=== PATIENT | male | born 1940 | race Hispanic/Latino ===

== ENCOUNTER 2022-04-03 20:57 | Observation (INO) | payer OTHER ==
--- NOTE | 2022-04-03 21:01 | EDPHYS ---
Physician Documentation [facility] Name: Billy Cristobal Age: 81 yrs Sex: Male : 1940 Arrival Date: 04/03/2022 Time: 20:58 Bed 18 Private MD: ED Physician Evaristo Cortes HPI: 04/04 00:09 This 81 yrs old Male presents to ER via EMS with complaints of pt was to be at [facility] for hospice but they declined him as he has a pluerex catheter draining to a collection system. 00:09 pt with pleural effusion, to be admitted to await NH placement at a facility that is sn comfortable taking pt . Historical: - Allergies: 04/03 21:09 No Known Allergies; ha1 - Home Meds: 21:09 amlodipine oral [Active]; Hydrochlorothiazide Oral [Active]; rosuvastatin Oral [Active];ha1 - PMHx: 21:09 Hypercholesterolemia; Hypertensive disorder; ha1 - Immunization history:: Adult Immunizations up to date. - Social history:: Smoking status: unknown. ROS: 04/04 00:09 Respiratory: Positive for cough, pleural effusion, upper abd pain. snw Exam: 00:09 Constitutional: This is a well developed, well nourished patient who is awake, alert, snw and in no acute distress. Head/Face: Normocephalic, atraumatic. Eyes: Pupils equal round and reactive to light, extra-ocular motions intact. Lids and lashes normal. Conjunctiva and sclera are non-icteric and not injected. Cornea within normal limits. Periorbital areas with no swelling, redness, or edema. ENT: Nares patent. No nasal discharge, no septal abnormalities noted. Tympanic membranes are normal and external auditory canals are clear. Oropharynx with no redness, swelling, or masses, exudates, or evidence of obstruction, uvula midline. Mucous membranes moist. 00:09 Back: No spinal tenderness. No costovertebral tenderness. Full range of motion. Skin: Warm, dry with normal turgor. Normal color with no rashes, no lesions, and no evidence of cellulitis. MS/ Extremity: Pulses equal, no cyanosis. Neurovascular intact. Full, normal range of motion. 00:09 Cardiovascular: Heart sounds: murmur, systolic, grade 4 over 6, Edema: is not appreciated. 00:09 Respiratory: the patient does not display signs of respiratory distress, Respirations: normal, Breath sounds: decreased breath sounds, right sided pleurex cath. 00:09 Abdomen/GI: Inspection: abdomen appears normal, Palpation: mild abdominal tenderness, in the epigastric area, right upper quadrant and left upper quadrant. Vital Signs: 04/03 21:04 BP 121 / 56; Pulse 107; Resp 20 S; Pulse Ox 96% on 3 lpm NC; Weight 74.84 kg; Height 5 ha1 ft. 9 in. (175.26 cm); Pain 7/10; 22:00 BP 121 / 51; Pulse 106; Resp 20 S; Pulse Ox 95% on 3 lpm NC; ha1 21:04 Body Mass Index 24.37 (74.84 kg, 175.26 cm) ha1 MDM: 20:58 Patient medically screened. snw 21:00 Data reviewed: vital signs, nurses notes. Counseling: I had a detailed discussion with snw the patient and/or guardian regarding: the historical points, exam findings, and any diagnostic results supporting the discharge/admit diagnosis, the need for further work-up and treatment in the hospital, pt needs admission for care until hospice situation resolved as pt has a pleural drainage system and was not accepted to facility with device. Administered Medications: 22:11 Drug: HYDROcodone-acetaminophen 5 mg-325 mg 1 tabs Route: PO; ha1 22:20 Follow up: Response: No adverse reaction; Pain is decreased; RASS: Alert and Calm (0) ha1 22:11 Drug: XANax (alprazolam) Tablet 0.25 mg Route: PO; ha1 22:20 Follow up: Response: No adverse reaction [facility] Disposition: 04/04 00:13 Chart complete. snw 03:13 Co-signature as Attending Physician, Evaristo Cortes MD I reviewed the patient's care rt provided by the Advanced Practice Provider and agree with the diagnosis and treatment plan. Disposition Summary: 04/03/22 21:00 Hospitalization Ordered Hospitalization Status: Observation snw Provider: [place] Location: Telemetry/MedSurg (observation) snw Condition: Guarded snw Problem: an ongoing problem snw Symptoms: are unchanged snw Bed/Room Type: Standard snw Room Assignment: 406(04/03/22 21:34) cg Diagnosis - Pleural effusion, not elsewhere classified snw Forms: - Medication Reconciliation Form snw - SBAR form snw Signatures: Hetal Myers FNP-C FNP-Aida Cannon RN RN cg Jocelyne Chahal RN RN ha1 Evaristo Cortes MD MD rt Corrections: (The following items were deleted from the chart) 04/03 20:34 21:00 snw cg
[2022-04-03] MEDS ORDERED: MORPHINE 2 MG/ML SYR IV PRN (21:57)
[2022-04-03] MEDS ORDERED: ONDANSETRON 4 MG/2 ML VIAL IV PRN (21:57)
[2022-04-03] MEDS ORDERED: ALPRAZOLAM 0.25 MG TABLET ONE (22:07)
[2022-04-03] MEDS ORDERED: HYDROCODONE/APAP 5/325 MG TAB ONE (22:08)
--- NOTE | 2022-04-03 22:17 | P.HP ---
Certification for Inpatient Patient admitted to: Observation With expected LOS: <2 Midnights Patient will require the following post-hospital care: None Practitioner: I am a practitioner with admitting privileges, knowledge of patient current condition, hospital course, and medical plan of care. 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 Patient was previously accepted on hospice to [facility] but upon arrival nursing staff refused to accept patient as he had a "chest tube". A discussion was had with staff at facility and attending physician here but ultimately nursing staff at [facility] refused to accept the patient. He was sent back to our facility will need to be admitted to further work on placement. - Past Medical/Surgical History Diabetic: No -: hypertension -: diabetes type 2 -: Metastatic cancer -: Malignant pleural effusion -: Right sided Pleurx catheter Psychosocial/ Personal History: Patient currently on hospice - Family History Father History Unknown: Yes - Social History Smoking Status: Former smoker Alcohol use: No CD- Drugs: No Caffeine use: No Place of Residence: [facility] <Barak Mitchell - Last Filed: 04/03/22 22:17> Date of Service: 04/04/22 <[place] - Last Filed: 04/04/22 16:15> Allergies No Known Allergies Allergy (Unverified 03/23/22 17:45) Home Medications: Amlodipine Bes/Olmesartan Med [Amlodipine-Olmesartan 5-20 mg] 5 - 20 mg PO DAILY 03/24/22 Cholecalciferol (Vitamin D3) [D3-5000] 25 mcg PO DAILY 03/24/22 Nebivolol HCl [Bystolic*] 5 mg PO DAILY 03/24/22 Rosuvastatin [Crestor*] 10 mg PO DAILY 03/24/22 Amiodarone HCl [Cordarone*] 200 mg PO BID tab 04/03/22 Review of Systems Unremarkable <Barak Mitchell - Last Filed: 04/03/22 22:17> Physical Examination - Physical Exam General: Alert, In no apparent distress, Oriented x3 HEENT: Atraumatic, PERRLA, Mucous membr. moist/pink, EOMI, Sclerae nonicteric Neck: Supple, 2+ carotid pulse no bruit, No LAD, Without JVD or thyroid abnormality Respiratory: Diminished, Other (PleurX catheter in place right chest with drainage system in place) Cardiovascular: Regular rate/rhythm, Normal S1 S2 Gastrointestinal: Normal bowel sounds, No tenderness Musculoskeletal: No tenderness Integumentary: No rashes Neurological: Normal speech, Normal strength at 5/5 x4 extr, Normal tone, Normal affect <StephenBarak Bertrand - Last Filed: 04/03/22 22:17> Assessment and Plan - Plan # Sepsis suspect secondary to Post-Obstructive Pneumonia (improved) # 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 # Acute Kidney Injury (resolved) # Type II Diabetes Mellitus # Hypertension - CT chest (03/23) = "large right pleural effusion with 4 cm mass like density in the posterior right upper lobe highly suspicious for malignancy. Small lesions in the posterolateral right ribs may represent metastatic lesions." - S/P thoracentesis on 03/24, cytology concerning for malignancy - CT abdomen/pelvis (03/27) = "significant irregular thickening and nodularity along the right pleural surface with pleural effusion present. This is likely malignant in etiology. Moderate retained colonic stool is present with sigmoid diverticulosis. 12 mm nonspecific hypodense mass mid body of the pancreas. This could be neoplastic in origin. MRI pancreatic protocol could be obtained for further evaluation. 10 mm lymph node is seen posterior to the IVC with metastatic type features." - S/P placement of right thoracic PleurX tunneled catheter. -Patient previously accepted to [facility] for hospice, upon arrival nursing staff refused to accept patient given the presence of his Pleurx catheter as the believed it was a "chest tube" and they cannot care for him there. Patient will be admitted here overnight, social work professor to be consulted to assist with further placement. Continue other home medications. Discharge Plan: [facility] Plan to discharge in: 24 Hours - Advance Directives Does patient have a Living Will: No Does patient have a Durable POA for Healthcare: No - Code Status/Comfort Care Code Status Assessed: Yes (DNR) Critical Care: No Time Spent Managing Pts Care (In Minutes): 30 <Barak Mitchell - Last Filed: 04/03/22 22:17> Physician Review: Patient Assessed, Agree with Above Assessment and Plan <[place] - Last Filed: 04/04/22 16:15>
--- NOTE | 2022-04-03 22:25 | ER ---
Nurse's Notes [facility] Name: Billy Cristobal Age: 81 yrs Sex: Male : 1940 Arrival Date: 04/03/2022 Time: 20:58 Bed 18 Private MD: Diagnosis: Pleural effusion, not elsewhere classified Presentation: 04/03 21:04 Chief complaint: EMS states: [facility] called because they do not feel ha1 comfortable caring for the patient with the chest tube drainage. he was discharged from here few days ago. Coronavirus screen: Vaccine status: Patient reports being unvaccinated. Ebola Screen: No symptoms or risks identified at this time. Initial Sepsis Screen: Does the patient meet any 2 criteria? No. Patient's initial sepsis screen is negative. Does the patient have a suspected source of infection? Yes: Catheter related infection (Mtz/dialysis/PICC/central line). Risk Assessment: Do you want to hurt yourself or someone else? Patient reports no desire to harm self or others. Onset of symptoms was April 03, 2022. 21:04 Method Of Arrival: EMS: [facility] ha1 21:04 Acuity: DAVY 3 ha1 Triage Assessment: 21:09 General: Appears uncomfortable, Behavior is calm, cooperative. Pain: Complains of pain ha1 in right subscapular area Pain does not radiate. Pain currently is 7 out of 10 on a pain scale. Quality of pain is described as pressure, throbbing. Neuro: Level of Consciousness is awake, alert, obeys commands, Oriented to person, place, time, situation. Cardiovascular: Capillary refill < 3 seconds Patient's skin is warm and dry. Respiratory: Airway is patent Respiratory effort is even, unlabored, Respiratory pattern is regular, symmetrical. GI: Abdomen is flat, non-distended, Bowel sounds present X 4 quads. : Mtz in place to gravity drainage clamped. Derm: Skin is fragile, Skin is dry, Skin is pale. Musculoskeletal: Circulation, motion, and sensation intact. Historical: - Allergies: 21:09 No Known Allergies; ha1 - Home Meds: 21:09 amlodipine oral [Active]; Hydrochlorothiazide Oral [Active]; rosuvastatin Oral [Active];ha1 - PMHx: 21: Hypercholesterolemia; Hypertensive disorder; ha1 - Immunization history:: Adult Immunizations up to date. - Social history:: Smoking status: unknown. Screenin:14 Abuse screen: Denies threats or abuse. Denies injuries from another. Nutritional ha1 screening: No deficits noted. Tuberculosis screening: No symptoms or risk factors identified. Assessment: 21:14 Reassessment: see triage assessment. ha1 22:00 Reassessment: Patient and/or family updated on plan of care and expected duration. Pain ha1 level reassessed. Patient is alert, oriented x 3, equal unlabored respirations, skin warm/dry/pink. pain 8/10. Vital Signs: 21:04 BP 121 / 56; Pulse 107; Resp 20 S; Pulse Ox 96% on 3 lpm NC; Weight 74.84 kg; Height 5 ha1 ft. 9 in. (175.26 cm); Pain 7/10; 22:00 BP 121 / 51; Pulse 106; Resp 20 S; Pulse Ox 95% on 3 lpm NC; ha1 21:04 Body Mass Index 24.37 (74.84 kg, 175.26 cm) ha1 ED Course: 20:58 Patient arrived in ED. snw 20:59 Hetal Myers FNP-C is PHCP. snw 20:59 Evaristo Cortes MD is Attending Physician. snw 20:59 Evaristo Cortes MD is Hospitalizing Provider. snw 21:00 [place] MD is Hospitalizing Provider. snw 21:04 Jocelyne Chahal RN is Primary Nurse. ha1 21:09 Triage completed. ha1 21:09 Arm band placed on right wrist. ha1 21:14 Patient has correct armband on for positive identification. Placed in gown. Bed in low ha1 position. Call light in reach. Side rails up X 1. Adult w/ patient. 22:23 No provider procedures requiring assistance completed. Patient did not have IV access ha1 during this emergency room visit. Administered Medications: 22:11 Drug: HYDROcodone-acetaminophen 5 mg-325 mg 1 tabs Route: PO; ha1 22:20 Follow up: Response: No adverse reaction; Pain is decreased; RASS: Alert and Calm (0) ha1 22:11 Drug: XANax (alprazolam) Tablet 0.25 mg Route: PO; ha1 22:20 Follow up: Response: No adverse reaction ha1 Medication: 22:24 VIS not applicable for this client. ha1 Outcome: 21:00 Decision to Hospitalize by Provider. snw 22:23 Admitted to Med/surg accompanied by tech, via stretcher, room 406, with oxygen. ha1 22:23 Condition: stable 22:23 Discharge instructions given to patient, family, Instructed on the need for admit. 22:24 Patient left the ED. ha1 Signatures: Hetal Myers, GLOVE EXAMINER-C GLOVE EXAMINER-Ayanw Jocelyne Chahal RN RN ha1 Corrections: (The following items were deleted from the chart) 04/04 04:02 02:20 Response: No adverse reaction; Pain is decreased; RASS: Alert and Calm (0) ha1 ha1
[2022-04-03 22:54] VITALS: BMI 22.4
[2022-04-03 23:10] VITALS: O2SAT 95
[2022-04-03] MEDS ORDERED: ALPRAZOLAM 0.25 MG TABLET PO PRN (23:57)
[2022-04-04] MEDS: HYDROCODONE/APAP 5/325 MG TAB PO PRN ×3 (03:20→13:58)
[2022-04-04] MEDS ORDERED: AMIODARONE HCL 200 MG TAB PO SCH (09:00)
[2022-04-04] MEDS: MORPHINE 2 MG/ML SYR IV PRN ×2 (10:44→14:51)
[2022-04-04 16:03] VITALS: BP 110/56; TEMP 98.5
--- NOTE | 2022-04-04 16:15 | P.DS ---
Admission Date: 04/03/22 Discharge Date: 04/04/22 Disposition: HOSPICE-HOME Discharge Condition: FAIR Reason for Admission: Pleural effusion Consultations: 1. 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 # Acute Kidney Injury (resolved) # Type II Diabetes Mellitus # Hypertension HOSPITAL COURSE: Mr. Billy Arshad is a pleasant 81-year-old male with a past medical history significant for metastatic lung cancer s/p Pleur-X catheter, type 2 diabetes mellitus and hypertension who was admitted to the [facility] on 04/03/2021. He was recently admitted and discharged on 04/03/2022 to a SNF with hospice services. However, upon arrival, it appears that the equipment needed for his Pleur-X catheter was not there. He was sent back to the Hospital and re- admitted. Case management was consulted and the equipment has now been delivered. He has been discharged back to the SNF with hospice services. On 04/04/2022, he was seen on morning rounds and deemed stable for discharge. He was given the opportunity to ask questions and reported no further questions. Furthermore, all questions were answered to the best of my ability. Today, I personally spent 15 minutes on his case, of which greater than 50% of the time was spent in patient education, counseling, and coordination of care as described above. - Physical Exam General: Alert, In no apparent distress, Oriented x3 HEENT: Atraumatic, Sclerae nonicteric Respiratory: Diminished, with faint scattered rhonchi/gurgles. Right Pleur-X catheter noted. Cardiovascular: Regular rate/rhythm, No murmurs, Edema (trace BLE) Gastrointestinal: Soft and benign, Non-distended, No tenderness Integumentary: No rashes Neurological: Normal speech, Normal affect Vital Signs/Physical Exam: Temp Pulse Resp BP Pulse Ox 98.5 F 106 H 16 110/56 L 97 04/04/22 16:00 04/04/22 16:00 04/04/22 16:00 04/04/22 16:00 04/04/22 16:00 Home Medications: Amlodipine Bes/Olmesartan Med [Amlodipine-Olmesartan 5-20 mg] 5 - 20 mg PO DAILY 03/24/22 Cholecalciferol (Vitamin D3) [D3-5000] 25 mcg PO DAILY 03/24/22 Nebivolol HCl [Bystolic*] 5 mg PO DAILY 03/24/22 Rosuvastatin [Crestor*] 10 mg PO DAILY 03/24/22 Amiodarone HCl [Cordarone*] 200 mg PO BID tab 04/03/22 Diet: Regular Activity: Fall precautions Time spent managing pt's care (in minutes): 15
== END 2022-04-04 17:08 | disposition hospice, inpatient (51) ==
LOC: ER 20:57 → ERHOLD 21:02 → 4TH 21:48
PROVIDERS: ADMIT Internal Medicine; ATTEND Internal Medicine
DX: J90 Pleural effusion, not elsewhere classified (principal); N17.9 Acute kidney failure, unspecified; K86.9 Disease of pancreas, unspecified; E11.9 Type 2 diabetes mellitus without complications; I10 Essential (primary) hypertension
CPT/HCPCS: 99285; J2270 ×2; G0378